=== PATIENT | male | born 1960 | race Caucasian/White ===

== ENCOUNTER → 2023-08-18 17:37 | Outpatient (BNVA) | payer OTHER, SELFPAY | PROVIDERS: PCP Nurse Practitioner Family; Visit Provider Nurse Practitioner Family | DX: K92.2 Gastrointestinal hemorrhage, unspecified (principal) | CPT/HCPCS: 80053; 85025 ==

== ENCOUNTER 2024-11-03 11:03 | Outpatient (CLI) | payer MEDICAID, SELFPAY ==
--- NOTE | 2024-11-03 15:09 | PETR_ITS ---
PROCEDURE INFORMATION: Exam: PET/CT Skull Base to Mid-thigh Exam date and time: 11/03/2024 2:42 PM Age: 64 years old Clinical indication: Condition or disease; Primary cancer: Malignant neoplasm of rectum; Initial oncological staging assessment LABS AND CLINICAL REPORTS: Glucose: 98 mg/dl Treatment strategy for malignancy (PET staging): Initial Staging (PI) TECHNIQUE: Imaging protocol: Following at least four-hour fasting and following the injection of radiopharmaceutical, low dose CT images were obtained. Then, PET images were obtained. Attenuation corrected images were constructed using the CT scan. Fused images of PET and CT were reviewed. The standardized uptake values (SUV) reported below are maximum values within a region of interest, expressed in gm/ml. Exam includes orbital meatal line to mid-thigh. SUV normalization method: BodyWeight Radiopharmaceutical: 11.39 mCi F-18 FDG (Fluorodeoxyglucose), IV. Time of imaging post radiopharmaceutical administration: 45 minutes Injection site: left ac COMPARISON: No relevant prior studies available. FINDINGS: Brain: Visualized brain has normal physiologic uptake. Paranasal sinuses: Small non FDG avid bilateral maxillary sinus mucous retention cysts. Otherwise clear without fluid levels. Pharynx: No abnormal uptake. Larynx: No abnormal uptake. Lungs, pleura and trachea: No abnormal uptake. Heart: Normal physiologic uptake. Mediastinal space: No abnormal uptake. Liver: No abnormal uptake. Gallbladder and biliary ducts: No abnormal uptake. Pancreas: No abnormal uptake. Spleen: No abnormal uptake. Adrenal glands: No abnormal uptake. Kidneys and ureters: Normal physiologic uptake. Simple appearing fluid density photopenic right renal cyst requires no dedicated imaging follow-up. Bilateral nonobstructive nephrolithiasis. Stomach and bowel: Diffuse FDG uptake along the colon greatest along the sigmoid colon and rectum showing avid uptake and wall thickening with mild adjacent stranding. SUV max at the rectum of 15.6 on axial image 95. Colonic diverticulosis. Reproductive: Enlarged prostate measures 5.1 cm in transverse dimension. No abnormal uptake. Vasculature: No abnormal uptake. Lymph nodes: No abnormal uptake. No lymphadenopathy in the head, neck, chest, abdomen, pelvis, and extremities. Skeleton: Degenerative changes along the spine, left shoulder, right acromioclavicular joint, bilateral sacroiliac joints and right hip. Soft tissues: No abnormal uptake in the visualized head, neck, chest, abdomen, pelvis, and extremities. Small fat containing umbilical and bilateral inguinal hernias. METRICS: Mediastinal blood pool: SUV mean 1.5 Liver uptake: SUV mean 2.0 PET/PET skull to thigh INIT [id number] IMPRESSION: 1. Avid FDG uptake and thickening along the sigmoid colon and rectum in this patient with reported rectal malignancy. Sigmoid colon findings may represent inflammatory or infectious colitis or diverticulitis, malignancy not excluded. 2. No evidence of metastatic disease. 3. Bilateral nonobstructive nephrolithiasis. 4. Additional chronic and incidental findings as above.
== END 2024-11-03 11:04 | disposition home or self-care (01) ==
LOC: RAD 11:06
PROVIDERS: PCP Nurse Practitioner Family; Visit Provider Internal Medicine Hematology & Oncology
DX: C20 Malignant neoplasm of rectum (principal); R93.3 Abnormal findings on diagnostic imaging of other parts of digestive tract; N20.0 Calculus of kidney; K11.6 Mucocele of salivary gland; N28.1 Cyst of kidney, acquired; K57.30 Diverticulosis of large intestine without perforation or abscess without bleeding; N40.0 Benign prostatic hyperplasia without lower urinary tract symptoms; K40.20 Bilateral inguinal hernia, without obstruction or gangrene, not specified as recurrent; K42.9 Umbilical hernia without obstruction or gangrene; M47.9 Spondylosis, unspecified; R93.6 Abnormal findings on diagnostic imaging of limbs; R93.89 Abnormal findings on diagnostic imaging of other specified body structures
CPT/HCPCS: 78815; A9552